=== PATIENT | female | born 1975 | race Caucasian/White ===

== ENCOUNTER 2017-02-16 08:12 | Inpatient (IN) | payer BC, OTHER ==
[~2017-02-16] VITALS: Ht 172.7 cm; Wt 91.6 kg
[2017-02-16] MEDS ORDERED: THIAMINE HCL 200 MG/2 ML VIAL IM ONE (22:15)
[2017-02-16] MEDS ORDERED: MAGNESIUM HYDROXIDE 30 ML LIQUID UDC PO PRN (22:15)
[2017-02-16] MEDS ORDERED: MAG HYDROX/AL HYDROX/SIMETH 30 ML LIQUID UDC PO PRN (22:15)
[2017-02-16] MEDS ORDERED: MIRALAX 17 GM POWD.PACK PO PRN (22:15)
[2017-02-16] MEDS ORDERED: ONDANSETRON 4 MG/2 ML VIAL IM PRN (22:15)
[2017-02-16] MEDS ORDERED: LORAZEPAM 2 MG/1 ML VIAL IM PRN (22:15)
[2017-02-16] MEDS ORDERED: diphenhydrAMINE 50 MG CAPSULE PO PRN (22:15)
[2017-02-16] MEDS ORDERED: LORAZEPAM 1 MG TABLET PO PRN ×2 (22:15)
[2017-02-16] MEDS ORDERED: ONDANSETRON ODT 4 MG TAB.RAPDIS SL PRN (22:15)
[2017-02-16] MEDS ORDERED: IBUPROFEN 400 MG TABLET PO PRN (22:15)
[2017-02-16] MEDS ORDERED: LOPERAMIDE HCL 2 MG CAPSULE PO PRN ×2 (22:15)
[2017-02-16] MEDS ORDERED: ACETAMINOPHEN 325 MG TABLET PO PRN (22:15)
[2017-02-16 22:25] LABS: *URINE HCG, QUAL NEGATIVE (NEGATIVE)
[2017-02-16 22:34] LABS: *AMPHETAMINE, URINE NEGATIVE (NEGATIVE); *BARBITURATE, URINE NEGATIVE (NEGATIVE); *CANNABINOID, URINE NEGATIVE (NEGATIVE); *COCCAINE, URINE NEGATIVE (NEGATIVE); *OPIATE, URINE NEGATIVE (NEGATIVE); *PHENCYCLIDINE SCREEN,URINE NEGATIVE (NEGATIVE)
[2017-02-16 22:40] VITALS: BP 127/81
--- NOTE | 2017-02-16 22:40 | NUR ---
Pre-Admission Pre-admission assessment performed in the intake department of [facility]. Pt is A&O x4 and ambulatory with a steady gait. She does not appear intoxicated and answers questions appropriately. Vitals: B/P 127/81, HR 71, RR 18, O2 sat 96%, T 98.0, pain 0/10. Pt reports that she is here to be treated for ETOH. Last drink was approximately two hours ago. She denies food or drug allergies. [facility]
[2017-02-16 23:38] LABS: EOSINOPHILS # (AUTO) 0.1 K/uL (0.0-0.7)
[2017-02-16 23:43] LABS: BASOPHILS # (AUTO) 0.1 K/uL (0.0-8.0); BASOPHILS % (AUTO) 0.6 % (0.0-2.0); EOSINOPHILS % (AUTO) 1.2 % (0.0-7.0); HEMATOCRIT 42.5 % (37-47); HEMOGLOBIN 14.3 G/DL (12.0-16.0); LYMPHOCYTES # (AUTO) 3.1 K/UL (0.8-4.8); LYMPHOCYTES % (AUTO) 33.7 % (20.5-51.5); MEAN CORPUSCULAR HEMOGLOBIN 30.4 UUG (27.0-31.0); MEAN CORPUSCULAR HGB CONC 34 g/dL (32.0-37.0); MONOCYTES # (AUTO) 0.4 K/UL (0.1-1.30); MONOCYTES % (AUTO) 4.1 % (0.0-11.0); NEUTROPHILS # (AUTO) 5.4 K/UL (1.8-8.9); NEUTROPHILS % (AUTO) 60.4 % (38.5-71.5); PLATELET COUNT (AUTO) 321 K/UL (150-450); RED BLOOD CELL COUNT(AUTO) 4.72 MIL/UL (4.2-5.4); WHITE BLOOD COUNT (AUTO) 9.1 K/UL (4.0-11.2)
[2017-02-16] MEDS ORDERED: LORAZEPAM 1 MG TABLET PO ONE (23:45)
[2017-02-16 23:56] LABS: BILIRUBIN,TOTAL 0.3 mg/dL (0.2-1.0); CREATININE 0.6 mg/dL (0.6-1.3); POTASSIUM 3.8 mmol/L (3.5-5.1); TOTAL PROTEIN, SERUM 9.1 g/dL (6.4-8.2)
[2017-02-17] VITALS: BP 103/54
[2017-02-17 00:03] LABS: THYROID STIMULATING HORMONE 2.774 mIU/mL (0.358-3.740)
--- NOTE | 2017-02-17 00:20 | NUR ---
ADMISSION Pt is a 41 yo female who arrived on the [facility] unit at 2314 on 02/16/17 for medically supervised detox. Body check performed by intake personnel and body check performed by nurse. Pt was oriented to the unit and shown to her room. She is A&O x4 and ambulatory with a steady gait. Pt does not appear intoxicated, is cooperative during assessment, and answers questions appropriately. Vitals in intake are B/P 127/81, HR 71, RR 18, O2 sat 96%, T 98.0, pain 0/10. Pt is 5'8" and weighs 202lb. She has NKA, is full code status, and on a regular diet. She has a PMH of gastric bypass in 2002. Lung sounds are clear, PERRLA, bowel sounds present, brisk capillary refill, building custodian strengths equal, skin is intact. She reports LMP was "last year". Pt explains that according to her elastic attacher chainstitch she is starting menopause. LBM was this morning. History of Use ETOH/Wine two 750mL bottles per day for the past two years. Last drank 1 glass of wine two hours prior to admission with a total of 750mL for the day. She has drank ETOH for 26 years. This is the patient's first time in treatment. She is a non-smoker. She decided to come to treatment today because "It got out of control". Pt lives at home with her and children. Symptoms when she doesn't use include "cravings". Her primary care physician is Dr. Garcia in [place], [place]. aware of patient's admission with orders received. Urine sample provided for UDS. CIWA on admission is 2. Pt educated regarding use of the call light and all questions answered. Fall and seizure precautions in place. Bed is down with call light in reach.
[2017-02-17 04:00] VITALS: BP 115/63
--- NOTE | 2017-02-17 04:00 | NUR ---
0400 CIWA deferred CIWA ordered Q4HWA. Pt is lying in bed resting with eyes closed. Vital signs obtained. Safety measures in place.
--- NOTE | 2017-02-17 07:28 | NUR ---
END OF SHIFT Report provided to day shift nurse. Pt is lying in bed watching TV. She is a 41 yo female admitted to [facility] last night at 2314 for ETOH dependence. She is A&O and ambulatory. NKA, full code, regular diet. 5 day Ativan taper scheduled to start today. Last CIWA was 2. She drank 200mL and slept for 5 hours. Safety measures in place.
--- NOTE | 2017-02-17 07:30 | NUR ---
START OF SHIFT Pt 41 y/o female admitted for etoh dependence. Pt received in room on bed awake watching television. Pt alert and oriented to name, place, and time. Perrla. Skin warm and dry to touch. Respirations even and unlabored. Pt anxious with pressured speech noted. It was reported that pt slept for 7 hours last night. Bed lowest position with side rails x2 up for safety. Call light within reach. No distress noted at this time.
[2017-02-17 08:00] VITALS: BP 144/64
[2017-02-17] MEDS ORDERED: TUBERCULIN,PURIF.PROT.DERIV. 5 TU/0.1 ML TEST ID ONE (09:00)
[2017-02-17] MEDS: THIAMINE HCL 100 MG TABLET PO SCH (09:04)
[2017-02-17] MEDS: FOLIC ACID 1 MG TABLET PO SCH (09:04)
[2017-02-17] MEDS: LORAZEPAM 1 MG TABLET PO SCH ×4 (09:04→20:59)
[2017-02-17] MEDS: MULTIVITAMINS,THERAPEUTIC TABLET PO SCH (09:04)
[2017-02-17 13:22] VITALS: BP 132/72
[2017-02-17 16:00] VITALS: BP 152/72
--- NOTE | 2017-02-17 18:00 | NUR ---
END OF SHIFT Pt 41 y/o female admitted for etoh dependence. Pt alert and oriented to name, place, and time. Perrla. Skin warm and slightly moist to touch. Respirations even and unlabored. Bilateral hand tremors noted slightly. Pt observed mostly isolative to room throughout the day. Pt did attend group activity. Pt was seen by MD. Pt medication compliant and tolerated well. No ASE noted. Bed on lowest position side rails x2 up for safety. Call light within reach. No distress noted at this time.
[2017-02-17] MEDS: CLONIDINE HCL 0.1 MG TABLET PO PRN (18:11)
--- NOTE | 2017-02-17 18:12 | NUR ---
PRN pt with fk=288/84. Catapres po prn per MD order given and tolerated well.
[2017-02-17 20:00] VITALS: BP 121/75
--- NOTE | 2017-02-17 20:00 | NUR ---
Start of Shift Notes Received 41 y/o female admitted 02/16/2017 for ETOH dependence. A&Ox4. Px has NKA, on Full Code and on regular diet. During the rounds, no complaint at the moment. CITRAE 4. Bed in lowest position with side rails x2 up for safety. Call light within reach. Respirations are even and unlabored. We'll continue to monitor.
--- NOTE | 2017-02-17 22:00 | NUR ---
CIWA deferred CIWA deferred due to the px is sleeping, to assess if the px is awake per doctor's order. Respirations are even and unlabored. We'll continue to monitor.
[2017-02-18] VITALS: BP 111/60
[2017-02-18 04:00] VITALS: BP 126/71
--- NOTE | 2017-02-18 07:24 | NUR ---
End of Shift Notes 41 y/o female admitted 02/16/2017 for ETOH dependence. A&Ox4. Px has NKA, on Full Code and on regular diet. During the shift, no complaint at the moment. Oral intake of 1,000 ml, voided x1, BM x1. Slept for 10 hrs. Bed lowest position with side rails x2 up for safety. Call light within reach. Respirations are even and unlabored. We'll continue to monitor.
--- NOTE | 2017-02-18 07:30 | NUR ---
START OF SHIFT Pt 41 y/o female admitted for etoh dependence. Pt received in room on bed awake watching television. Pt alert and oriented to name, place, and time. Perrla. Skin warm and dry to touch. Respirations even and unlabored. Pt appears slightly anxious. It was reported that pt slept for 10 hours last night. Bed lowest position with side rails x2 up for safety. Call light within reach. No distress noted at this time.
[2017-02-18 08:06] VITALS: BP 118/78
[2017-02-18] MEDS: FOLIC ACID 1 MG TABLET PO SCH (08:21)
[2017-02-18] MEDS: THIAMINE HCL 100 MG TABLET PO SCH (08:21)
[2017-02-18] MEDS: LORAZEPAM 1 MG TABLET PO SCH ×3 (08:21→22:05)
[2017-02-18] MEDS: MULTIVITAMINS,THERAPEUTIC TABLET PO SCH (08:21)
[2017-02-18 12:07] LABS: HEPATITIS B SURFACE AG Negative (Negative)
[2017-02-18 12:29] VITALS: BP 144/94
--- NOTE | 2017-02-18 13:45 | NUR ---
Activity Group Note: Client participated in "sand art" activity. Intervention goal was to increase task focus and leisure skills. Client's mood appeared to be depressed with blunted affect. She had a coherent and goal-directed thought process, as she was able to understand, complete, and teach the task to her peers. Client stated, "I'm here for my son...I want to give him this (art) when I get to see him again." Client benefits from leisure activities and social interaction with peers. community worker will continue to encourage participation in activity group.
--- NOTE | 2017-02-18 16:49 | NUR ---
Client was prompted by therapist to attend daily group sessions. Client stated that she would attend daily groups.
[2017-02-18 16:56] VITALS: BP 122/67
[2017-02-18 20:00] VITALS: BP 118/65
--- NOTE | 2017-02-18 20:00 | NUR ---
Start of Shift Notes Received 41 y/o female admitted 02/16/2017 for ETOH dependence. A&Ox4. Px has NKA, on Full Code and on regular diet. During the rounds, no complaint made at the moment. Bed in lowest position with side rails x2 up for safety. Call light within reach. Respirations are even and unlabored. We'll continue to monitor.
[2017-02-19] VITALS: BP 113/67
[2017-02-19 04:00] VITALS: BP 122/73
--- NOTE | 2017-02-19 07:19 | NUR ---
End of Shift Notes 41 y/o female admitted 02/16/2017 for ETOH dependence. A&Ox4. Px has NKA, on Full Code and on regular diet. During the shift, no complaint made. Bed in lowest position with side rails x2 up for safety. Oral intake of 1,300 ml, voided 2x, no BM. Slept for 9 hrs. Last CIWA 1. Call light within reach. Respirations are even and unlabored. We'll continue to monitor.
[2017-02-19 08:00] VITALS: BP 130/88
--- NOTE | 2017-02-19 08:10 | NUR ---
START OF SHIFT: RECEIVED PT A/O X 4. SHE C/O ANXIETY AND RESTLESSNESS. SHE STATES SHE IS SLEEPING AND EATING WELL. CIWA 3. SHE CONTINUES ON ATIVAN TAPER. ENCOURAGED INCREASED FLUIDS TO ASSIST IN FACILITATING DETOX PROCESS. WILL CONTINUE TO MONITOR AND MANAGE S/S OF W/D.
[2017-02-19] MEDS: LORAZEPAM 1 MG TABLET PO SCH ×3 (08:58→20:16)
[2017-02-19] MEDS: THIAMINE HCL 100 MG TABLET PO SCH (08:58)
[2017-02-19] MEDS: FOLIC ACID 1 MG TABLET PO SCH (08:58)
[2017-02-19] MEDS: MULTIVITAMINS,THERAPEUTIC TABLET PO SCH (08:58)
[2017-02-19] MEDS ORDERED: LORAZEPAM 1 MG TABLET PO SCH (09:00)
[2017-02-19 12:00] VITALS: BP 139/98
[2017-02-19] MEDS: CLONIDINE HCL 0.1 MG TABLET PO PRN (12:39)
--- NOTE | 2017-02-19 12:40 | NUR ---
PRN CLONIDINE GIVEN FOR BP 139/98 P 76. WILL REASSESS BP TO MONITOR EFFECTIVENESS.
--- NOTE | 2017-02-19 13:40 | NUR ---
BP 118/75 P 98 PRN CLONIDINE EFFECTIVE.
[2017-02-19 16:00] VITALS: BP 127/87
--- NOTE | 2017-02-19 18:40 | NUR ---
PRN VISTARIL AND ROBAXIN GIVEN FOR ANXIETY AND MUSCLE ACHES. WILL ENDORSE TO ONCOMING NIGHT NURSE. Addendum: 02/19/17 at 1908 by VERNON PÉREZ RN DISREGARD LAST NOTE ENTERED ON WRONG PT.
--- NOTE | 2017-02-19 19:09 | NUR ---
END OF SHIFT: PT CONTINUES ON ATIVAN TAPER.LAST CIWA 2. SHE ATTENDED GROUPS. BP WAS ELEVATED AT NOON PRN CLONIDINE GIVEN AND EFFECTIVE.PT IS COMPLIANT WITH INCREASED FLUIDS. WILL PASS SHIFT REPORT TO ONCOMING NIGHT NURSE.
[2017-02-19 20:00] VITALS: BP 100/55
--- NOTE | 2017-02-19 20:00 | NUR ---
START OF SHIFT NOTE RECEIVED REPORT FROM DAY SHIFT NURSE. PATIENT IS A 41 YEAR OLD FEMALE ADMITTED FOR ETOH DEPENDENCE. PATIENT WAS PLACED ON 5 DAY ATIVAN TAPER. UPON ADMISSION, PATIENT REPORTS DRINKING WINE (2) 750 ML BOTTLE DAILY FOR 2 YEARS. PATIENT REPORTS GASTRIC BYPASS-2002. NO SEIZURE HISTORY. SKIN INTACT. PATIENT WAS GIVEN PRN CLONIDINE FOR BP-138/98, EFFECTIVE BP RECHECKED 118/75. LAST CIWA 2. RECEIVED PATIENT IN HER ROOM, RESTING. PATIENT STATES SHE WANTS TO GO TO SLEEP NOW. NO N/V, DENIES ANY PAIN AT THIS TIME. ON FALL/SEIZURE PRECAUTION. SAFETY MEASURES IN PLACE. CALL LIGHT IN REACH. WILL CONTINUE TO MONITOR.
[2017-02-20] VITALS: BP 115/64
--- NOTE | 2017-02-20 | NUR ---
CIWA DEFERRED PATIENT SLEEPING. CIWA DEFERRED. RESPIRATION EVEN AND UNLABORED. SAFETY MEASURES IN PLACE. CALL LIGHT IN REACH. WILL CONTINUE TO MONITOR
[2017-02-20 04:00] VITALS: BP 110/72
--- NOTE | 2017-02-20 04:00 | NUR ---
CIWA DEFERRED PATIENT SLEEPING. CIWA DEFERRED. RESPIRATION EVEN AND UNLABORED. SAFETY MEASURES IN PLACE. CALL LIGHT IN REACH. WILL CONTINUE TO MONITOR
--- NOTE | 2017-02-20 07:11 | NUR ---
END OF SHIFT NOTE PATIENT IS A 41 YEAR OLD FEMALE ADMITTED FOR ETOH DEPENDENCE. PATIENT WAS PLACED ON 5 DAY ATIVAN TAPER, TOLERATED WELL, NO ADVERSE REACTION. PATIENT STATES MEDICATIONS ARE EFFECTIVE IN CONTROLLING HIS WITHDRAWAL SYMPTOMS. SKIN INTACT. PATIENT WAS DID NOT REQUIRE ANY PRN MEDICATION. ON FALL/SEIZURE PRECAUTION. SAFETY MEASURES IN PLACE. CALL LIGHT IN REACH. WILL CONTINUE TO MONITOR. SLEPT 9 HOURS. FLUID INTAKE 1,153 ML. VOIDED X 3. NO BM. LAST CIWA 3.
[2017-02-20 08:00] VITALS: BP 122/71
--- NOTE | 2017-02-20 08:10 | NUR ---
START OF SHIFT: RECEIVED PT A/O X 4. SHE C/O ANXIETY AND RESTLESSNESS. SHE STATES SHE SLEEPING WELL. CIWA 1. SHE CONTINUES ON ATIVAN TAPER. ENCOURAGED GROUP ATTENDANCE TO IMPROVE COPING SKILLS AND PREVENT RELAPSE. WILL CONTINUE TO MONITOR AND MANAGE S/S OF W/D.
[2017-02-20] MEDS: LORAZEPAM 1 MG TABLET PO SCH ×2 (08:42→20:46)
[2017-02-20] MEDS: THIAMINE HCL 100 MG TABLET PO SCH (08:43)
[2017-02-20] MEDS: MULTIVITAMINS,THERAPEUTIC TABLET PO SCH (08:43)
[2017-02-20] MEDS: FOLIC ACID 1 MG TABLET PO SCH (08:43)
[2017-02-20] MEDS ORDERED: LORAZEPAM 1 MG TABLET PO SCH (09:00)
[2017-02-20 12:00] VITALS: BP 137/87
[2017-02-20 16:00] VITALS: BP 138/74
--- NOTE | 2017-02-20 18:38 | NUR ---
END OF SHIFT: PT CONTINUES ON ATIVAN TAPER.LAST CIWA 4. SHE MADE A PHONE CALL WITH DUCT LAYER SUPERVISOR PRESENT AND APPEARED ANGRY AND AGITATED AFTER PHONE CALL. OFFERED SUPPORT AND ENCOURAGED HER TO EXPRESS FEELINGS BUT PT WAS NOT INTERESTED IN DISCUSSING SITUATION.. PT IS COMPLIANT WITH INCREASED FLUIDS. SHE ATTENDED GROUPS. NO PRNS GIVEN. WILL PASS SHIFT REPORT TO ONCOMING NIGHT NURSE.
[2017-02-20 20:00] VITALS: BP 124/68
--- NOTE | 2017-02-20 20:00 | NUR ---
START OF SHIFT NOTE RECEIVED REPORT FROM DAY SHIFT NURSE PATIENT IS A 41 YEAR OLD FEMALE ADMITTED FOR ETOH DEPENDENCE. PATIENT IS ON 4TH DAY OF HER 5 DAY ATIVAN TAPER, TOLERATED WELL. NO ADVERSE REACTION. UPON ADMISSION, PATIENT REPORTS DRINKING WINE (2) 750ML BOTTLES DAILY FOR 2 YEARS. NO SEIZURE HISTORY. SKIN INTACT. PATIENT DID NOT REQUIRE ANY PRN MEDICATION . LAST CIWA 4. RECEIVED PATIENT IN HER ROOM, RESTING. UPON GREETING, PATIENT STATES SHES ANXIOUS TO GO HOME. NO N/V, C/O SWEATING. DENIES ANY PAIN AND ATTENDED ALL GROUPS TODAY. ON FALL/SEIZURE PRECAUTION. SAFETY MEASURES IN PLACE. CALL LIGHT IN REACH . WILL CONTINUE TO MONITOR.
[2017-02-21] VITALS: BP 114/57
[2017-02-21 04:00] VITALS: BP 121/99
--- NOTE | 2017-02-21 07:13 | NUR ---
END OF SHIFT NOTE PATIENT IS A 41 YEAR OLD FEMALE ADMITTED FOR ETOH DEPENDENCE. PATIENT CONTINUE ON ATIVAN TAPER, TOLERATED WELL. NO ADVERSE REACTION. UPON ADMISSION, PATIENT REPORTS DRINKING WINE (2) 750ML BOTTLES DAILY FOR 2 YEARS. NO SEIZURE HISTORY. SKIN INTACT. PATIENT DID NOT REQUIRE ANY PRN MEDICATION . PATIENT IN HER ROOM MOST OF THE SHIFT. PATIENT WAS ANXIOUS TO GO HOME SHE STATES. PATIENT DID NOT REQUIRE ANY PRN MEDICATION. ON FALL/SEIZURE PRECAUTION. SAFETY MEASURES IN PLACE. CALL LIGHT IN REACH . WILL CONTINUE TO MONITOR. SLEPT 8 HOURS. FLUID INTAKE 605 ML. VOIDED X 1 . NO BM. LAST CIWA 2.
[2017-02-21 07:24] LABS: BILIRUBIN,DIRECT 0.1 mg/dL (0.0-0.2); BILIRUBIN,TOTAL 0.6 mg/dL (0.2-1.0); CREATININE 0.7 mg/dL (0.6-1.3); MAGNESIUM 1.9 mg/dL (1.8-2.4); PHOSPHOROUS 3.8 mg/dL (2.5-4.9); POTASSIUM 4.3 mmol/L (3.5-5.1); TOTAL PROTEIN, SERUM 7.9 g/dL (6.4-8.2)
--- NOTE | 2017-02-21 07:30 | NUR ---
START OF SHIFT Pt is a 41 yr old female, AA&Ox4. Pt was admitted on 02/16/17 for ETOH Dependence and is o 5 day Ativan taper as ordered. Medication parish well. Received report from restaurant shift leader nurse. No PRN's were during the night. Pt slept for 8 hrs. Last CIWA score was 2 at 1999. Pt is currently in bed resting with respirations even and unlabored. No acute distress noted. Skin is intact, warm and dry to touch. Pt is on fall and seizure precautions. Bed kept in low positions and locked with side rails up x2. Call light is within reach. Will continue to monitor.
[2017-02-21 08:00] VITALS: BP 123/73
[2017-02-21] MEDS: FOLIC ACID 1 MG TABLET PO SCH (08:42)
[2017-02-21] MEDS: MULTIVITAMINS,THERAPEUTIC TABLET PO SCH (08:42)
[2017-02-21] MEDS: THIAMINE HCL 100 MG TABLET PO SCH (08:42)
[2017-02-21] MEDS ORDERED: LORAZEPAM 1 MG TABLET PO SCH ×2 (09:00)
[2017-02-21 12:00] VITALS: BP 142/88
--- NOTE | 2017-02-21 13:45 | NUR ---
Activity Group Note: Client participated in "Demarco" and "Sequence" activity. Intervention goal was to increase task focus and leisure skills. Client appeared to have a euthymic mood with congruent affect. She had a coherent and goal-directed thought process, evidenced by her ability to understand, complete, and teach the task to her peers. Client stated, "I love playing games because it helps me take my mind off things." Client benefits from leisure activities and social interaction with peers. core worker will continue to encourage participation.
[2017-02-21 16:00] VITALS: BP 153/88
--- NOTE | 2017-02-21 18:57 | NUR ---
END OF SHIFT Pt is a 41 yr old female, AA&Ox4. Pt was admitted on 02/16/17 for ETOH Dependence and is o 5 day Ativan taper as ordered. Medication parish well. Pt has been cooperative with medication regimen and plan of care. Pt attended group sessions during the day. No PRN's were given during the day. Last CIWA score was 1 at 1600. Pt is to be discharged tomorrow to [facility]. Pt denies any anxiety or agitation at this time. Skin is intact, warm and dry to touch. No tremor seen or felt. Pt denies any n/v. Pt is on fall and seizure precautions. Bed kept in low positions and locked with side rails up x2. Call light is within reach.
[2017-02-21] MEDS ORDERED: HYDR-3026 PO (18:58)
[2017-02-21] MEDS ORDERED: DIPH50CA37 PO (18:58)
--- NOTE | 2017-02-21 19:30 | NUR ---
Start of Shift Notes Received 41 yr old female, AA&Ox4 admitted on 02/16/17 for ETOH dependence. AA&Ox4. NKA, regular diet, on full code. Completed a 5 day Ativan taper, tolerated well. For D/C tomorrow 02/22/2017. During the rounds at 1930, No complaints at the moment. Respirations even and unlabored. No acute distress noted. Skin is intact, warm and dry to touch. Bed kept in low positions and locked with side rails up x2. Call light is within reach. We'll continue to monitor.
[2017-02-21 20:00] VITALS: BP 125/85
[2017-02-22] VITALS: BP 123/79
[2017-02-22 04:00] VITALS: BP 120/81
--- NOTE | 2017-02-22 07:19 | NUR ---
End of Shift Notes 41 yr old female, AA&Ox4 admitted on 02/16/17 for ETOH dependence. AA&Ox4. NKA, regular diet, on full code. Completed a 5 day Ativan taper, tolerated well. To be D/C today 02/22/2017. During the shift, No complaints made. Oral intake of 1,500 ml, voided 3x, No BM. Slept for 7 hrs. Respirations are even and unlabored. No acute distress noted. Bed kept in low positions and locked with side rails up x2. Call light is within reach. We'll continue to monitor.
--- NOTE | 2017-02-22 07:25 | NUR ---
Start of shift note SBAR report rcv'd. Pt was admitted for ETOH dependence. Pt has a PMHx of gastic bypass and possible DM II. Pt is a full code, on a regular diet and denies any allergies. Pt has completed a 5 day ativan taper without any ASE. Pt is scheduled to discharge today. Pt states that she feels ready for discharge. Pt has no complaints. All needs addressed at this time. Will continue to monitor pt.
[2017-02-22 08:00] VITALS: BP 132/78
[2017-02-22] MEDS: FOLIC ACID 1 MG TABLET PO SCH (08:26)
[2017-02-22] MEDS: THIAMINE HCL 100 MG TABLET PO SCH (08:26)
[2017-02-22] MEDS: MULTIVITAMINS,THERAPEUTIC TABLET PO SCH (08:26)
--- NOTE | 2017-02-22 09:00 | NUR ---
Discharge note Pt was admitted for ETOH dependence. Pt has a CIWA of 0, VS are WNL. Pt states that she feels ready for discharge, denies SI/HI. Pt verbalized her understanding of the discharge instructions. Pt discharge instructions and all belongings returned to pt. Pt ID band removed, pt ambulated off of unit with TRADE SALES ASSISTANT, left facility via [facility].
== END 2017-02-22 09:00 | disposition other institution (70) | DRG 895 ==
LOC: SRC 21:31
PROVIDERS: ADMIT Internal Medicine; ATTEND Internal Medicine
PROC: HZ2ZZZZ Detoxification Services for Substance Abuse Treatment (ICD-10-PCS; principal; 2017-02-16)
PROC: HZ41ZZZ Group Counseling for Substance Abuse Treatment, Behavioral (ICD-10-PCS; 2017-02-17)
PROC: HZ31ZZZ Individual Counseling for Substance Abuse Treatment, Behavioral (ICD-10-PCS; 2017-02-19)
DX: F10.230 Alcohol dependence with withdrawal, uncomplicated (principal); I15.9 Secondary hypertension, unspecified; E11.9 Type 2 diabetes mellitus without complications; E66.9 Obesity, unspecified; Y90.6 Blood alcohol level of 120-199 mg/100 ml; Z91.89 Other specified personal risk factors, not elsewhere classified; Z98.84 Bariatric surgery status; Z68.30 Body mass index [BMI] 30.0-30.9, adult; Z83.3 Family history of diabetes mellitus; Z81.1 Family history of alcohol abuse and dependence; E78.5 Hyperlipidemia, unspecified; F32.9 Major depressive disorder, single episode, unspecified
CPT/HCPCS: 36415; 70030-TC; 80307; 83735; 84100; 84443; 84703; 85025; 86592; 86705; 86803; 87340; 87806; A4663; G0480; J3411